=== PATIENT | male | born 1985 | race Caucasian/White ===

== ENCOUNTER 2018-01-23 18:22 | Emergency (ER) | payer SELFPAY ==
[~2018-01-23] VITALS: Ht 185.4 cm; Wt 72.0 kg
[~2018-01-23 18:22] MED LIST: ALPR1 PO; OXYC10TA8 PO
[2018-01-23 18:33] VITALS: BP 145/67; PULSE 94; RESP 16; TEMP 97.6; O2SAT 97
--- NOTE | 2018-01-23 20:03 | PD ---
HPI Chief Complaint: Psychiatric Symptoms Time Seen by Provider: 19:38 Travel History International Travel<30 days: No Contact w/Intl Traveler<30days: No Traveled to known affect area: No History of Present Illness HPI 32-year-old white male presents emergency department on a voluntary basis at the recommendation of [facility] for psychological evaluation. DCF was called on this patient because he has been using illegal substances. The patient does admit to taking oxycodone, Xanax as well as injecting methamphetamine. The patient denies any suicidal homicidal ideation. He denies any toxic ingestions. He states that he has chronic back pain. Symptoms are moderate. No alleviating factors. Worsened by drug abuse. PFSH Past Medical History Narrative Medical Chronic back pain, borderline hypertension, substance abuse Diminished Hearing: No Tetanus Vaccination: < 5 Years Past Surgical History Narrative Surgical Lumbar discectomy, tonsils tonsillectomy and adenoidectomy Tonsillectomy: Yes Social History Alcohol Use: No Tobacco Use: Yes (1/2PPD) Substance Use: Yes Allergies-Medications (Allergen,Severity, Reaction): Coded Allergies: acetaminophen (Unverified Allergy, Intermediate, Nausea/Vomiting, 05/23/17) amoxicillin (Unverified Allergy, Intermediate, Rash, 05/23/17) clavulanic acid (Unverified Allergy, Intermediate, Rash, 05/23/17) morphine (Unverified Allergy, Intermediate, Nausea/Vomiting, 05/23/17) Reported Meds & Prescriptions Reported Meds & Active Scripts Active Reported Oxycodone Hcl (Oxycodone HCl) 10 Mg Tab 30 Mg PO Q6H PRN Xanax 1 Mg Tab (Alprazolam) 1 Mg Tab 1 Mg PO BID PRN Review of Systems General / Constitutional: No: Fever Eyes: No: Visual changes HENT: No: Headaches Cardiovascular: No: Chest Pain or Discomfort Respiratory: No: Shortness of Breath Gastrointestinal: No: Abdominal Pain Genitourinary: No: Dysuria Musculoskeletal: Positive: Pain (Chronic lower back pain), No: Myalgias, Arthralgias, Limited ROM, Weakness, Cramping Skin: No Rash Neurologic: No: Weakness Psychiatric: Positive: Substance Abuse, No: Anxiety, Depression, Suicidal Ideations, Disorder of Thought, Mood Disorder, Homicidal Ideation Endocrine: No: Polydipsia Hematologic/Lymphatic: No: Easy Bruising Physical Exam Narrative GENERAL: Well-nourished, well-developed patient. Patient appears under the influence of substances. Patient's speech is slow but intact. SKIN: Warm and dry. HEAD: Normocephalic and atraumatic. EYES: No scleral icterus. No injection or drainage. ENT: No nasal drainage noted. Mucous membranes pink. Airway patent. NECK: Supple, trachea midline. Moves head freely without obvious discomfort. CARDIOVASCULAR: Regular rate and rhythm without murmurs, gallops, or rubs. RESPIRATORY: Breath sounds equal bilaterally. No accessory muscle use. GASTROINTESTINAL: Abdomen soft, non-tender, nondistended. EXTREMITIES: No cyanosis or edema. BACK: Nontender without obvious deformity. No CVA tenderness. NEURO: Patient is alert and oriented. no sensorimotor deficits. Nonfocal. Slow but intact speech. PSYCH: No delusions. No auditory or visual hallucinations. Data Data Last Documented VS Vital Signs Date Time Temp Pulse Resp B/P (MAP) Pulse Ox O2 Delivery O2 Flow Rate FiO2 01/23/18 18:33 97.6 94 16 145/67 (93) 97 Orders Orders Complete Blood Count With Diff (01/23/18 19:34) Comprehensive Metabolic Panel (01/23/18 19:34) Thyroid Stimulating Hormone (01/23/18 19:34) Psych Screen (01/23/18 19:34) Drug Screen, Random Urine (01/23/18 19:34) Alcohol (Ethanol) (01/23/18 19:34) Salicylates (Aspirin) (01/23/18 19:34) Tylenol (Acetaminophen) (01/23/18 19:34) [facility] Medical Decision Making Medical Screen Exam Complete: Yes Emergency Medical Condition: Yes Medical Record Reviewed: Yes Differential Diagnosis MDM: High Differential diagnoses: Schizophrenia, schizoaffective disorder, bipolar, anxiety, depression, adjustment reaction, mood disorder NOS, ODD, depressive disorder NOS, substance induced mood disorder,infection,electrolyte abnormality , malingering. Narrative Course Mental health screening discussed with the patient. Psychiatric screen ordered. Condition: Stable JuditOrlando MCNAIR Jan 23, 2018 20:03
[2018-01-23 21:52] LABS: AUTOMATED NEUTROPHIL # 3.1 TH/MM3 (1.8-7.7); BASOPHIL # 0.1 TH/MM3 (0-0.2); EOSINOPHIL # 0.2 TH/MM3 (0-0.4); EOSINOPHIL % 2.8 % (0.0-4.0); HEMATOCRIT 43.6 % (39.0-51.0); HEMOGLOBIN 14.4 GM/DL (13.0-17.0); LYMPH % 42.3 % (9.0-44.0); MEAN CELL VOLUME 76.9 FL (80.0-100.0); MEAN CORPUSCULAR HEMOGLOBIN 25.4 PG (27.0-34.0); MEAN CORPUSCULAR HGB CONC 33.1 % (32.0-36.0); MEAN PLATELET VOLUME 8.7 FL (7.0-11.0); MONO % 10.5 % (0.0-8.0); MONOCYTE # 0.7 TH/MM3 (0-0.9); NEUT % 43.4 % (16.0-70.0); PLATELET COUNT 280 TH/MM3 (150-450); RED BLOOD COUNT 5.67 MIL/MM3 (4.50-5.90); RED CELL DISTRIBUTION WIDTH 17.2 % (11.6-17.2)
[2018-01-23 22:27] LABS: ALBUMIN 4.1 GM/DL (3.4-5.0); ALT (GPT) 23 U/L (12-78); AST (GOT) 20 U/L (15-37); BICARBONATE 33.9 MEQ/L (21.0-32.0); BLOOD UREA NITROGEN 9 MG/DL (7-18); CALCIUM 8.8 MG/DL (8.5-10.1); CHLORIDE 104 MEQ/L (98-107); CREATININE 0.97 MG/DL (0.60-1.30); GLOMERULAR FILTRATION RATE 89 ML/MIN (>89); GLUCOSE,RANDOM 63 MG/DL (74-106); SODIUM (NA) 143 MEQ/L (136-145)
[2018-01-23 22:37] LABS: ALKALINE PHOSPHATASE 82 U/L (45-117); TOTAL BILIRUBIN ADULT 0.6 MG/DL (0.2-1.0); TOTAL PROTEIN 7.7 GM/DL (6.4-8.2)
[2018-01-23 22:41] LABS: ACETAMINOPHEN LESS THAN 2.0 MCG/ML (10.0-30.0)
[2018-01-23 22:44] VITALS: BP 133/82; PULSE 93; RESP 20; TEMP 98.9; O2SAT 100
[2018-01-24 06:18] VITALS: BP 142/79; PULSE 87; RESP 14; TEMP 97.8; O2SAT 99
--- NOTE | 2018-01-24 08:35 | PD ---
Physical Exam Time Seen by Provider: 08:30 Narrative This patient came in on a voluntary basis for psych screen per [facility]. Dr. Alva states this patient came in for psych evaluation for DCF. He says they do not do psych screens for DCF and the patient has no psychiatric symptoms , so he will not be evaluated by the psychiatrist at this time. I evaluated the patient and he says he was sent here by [facility] because some random phone calls were made to [facility] stating the patient was using illegal drugs and making statements that he wanted to hurt himself or others. The patient states that this is not true. He denies being suicidal or homicidal. He admits to injecting drugs 2 times. He denies having psychiatric history. I do not feel the patient is a threat to himself or others and the patient will be discharged home. Data Data Last Documented VS Vital Signs Date Time Temp Pulse Resp B/P (MAP) Pulse Ox O2 Delivery O2 Flow Rate FiO2 01/24/18 06:18 97.8 87 14 142/79 (100) 99 01/23/18 22:44 Room Air Orders Orders Complete Blood Count With Diff (01/23/18 19:34) Comprehensive Metabolic Panel (01/23/18 19:34) Thyroid Stimulating Hormone (01/23/18 19:34) Psych Screen (01/23/18 19:34) Drug Screen, Random Urine (01/23/18 19:34) Alcohol (Ethanol) (01/23/18 19:34) Salicylates (Aspirin) (01/23/18 19:34) Tylenol (Acetaminophen) (01/23/18 19:34) Diet Regular Basic (01/24/18 Breakfast) Labs Laboratory Tests Test 01/23/18 21:32 01/23/18 21:37 Urine Opiates Screen NEG Urine Barbiturates Screen NEG Urine Amphetamines Screen POS Urine Benzodiazepines Screen POS Urine Cocaine Screen NEG Urine Cannabinoids Screen NEG White Blood Count 7.0 TH/MM3 Red Blood Count 5.67 MIL/MM3 Hemoglobin 14.4 GM/DL Hematocrit 43.6 % Mean Corpuscular Volume 76.9 FL Mean Corpuscular Hemoglobin 25.4 PG Mean Corpuscular Hemoglobin Concent 33.1 % Red Cell Distribution Width 17.2 % Platelet Count 280 TH/MM3 Mean Platelet Volume 8.7 FL Neutrophils (%) (Auto) 43.4 % Lymphocytes (%) (Auto) 42.3 % Monocytes (%) (Auto) 10.5 % Eosinophils (%) (Auto) 2.8 % Basophils (%) (Auto) 1.0 % Neutrophils # (Auto) 3.1 TH/MM3 Lymphocytes # (Auto) 3.0 TH/MM3 Monocytes # (Auto) 0.7 TH/MM3 Eosinophils # (Auto) 0.2 TH/MM3 Basophils # (Auto) 0.1 TH/MM3 CBC Comment DIFF FINAL Differential Comment Blood Urea Nitrogen 9 MG/DL Creatinine 0.97 MG/DL Random Glucose 63 MG/DL Total Protein 7.7 GM/DL Albumin 4.1 GM/DL Calcium Level 8.8 MG/DL Alkaline Phosphatase 82 U/L Aspartate Amino Transf (AST/SGOT) 20 U/L Alanine Aminotransferase (ALT/SGPT) 23 U/L Total Bilirubin 0.6 MG/DL Sodium Level 143 MEQ/L Potassium Level 3.8 MEQ/L Chloride Level 104 MEQ/L Carbon Dioxide Level 33.9 MEQ/L Anion Gap 5 MEQ/L Estimat Glomerular Filtration Rate 89 ML/MIN Thyroid Stimulating Hormone 3rd Gen 2.490 uIU/ML Salicylates Level LESS THAN 1.7 MG/DL Acetaminophen Level LESS THAN 2.0 MCG/ML Ethyl Alcohol Level LESS THAN 3 MG/DL MDM Supervised Visit with JEREMY: No Narrative Course This patient came in on a voluntary basis for psych screen per [facility]. Dr. Alva states this patient came in for psych evaluation for DCF. He says they do not do psych screens for DCF and the patient has no psychiatric symptoms , so he will not be evaluated by the psychiatrist at this time. I evaluated the patient and he says he was sent here by [facility] because some random phone calls were made to [facility] stating the patient was using illegal drugs and making statements that he wanted to hurt himself or others. The patient states that this is not true. He denies being suicidal or homicidal. He admits to injecting drugs 2 times. He denies having psychiatric history. I do not feel the patient is a threat to himself or others and the patient will be discharged home. Patient contracts safety. Denies suicidal or homicidal ideations. Patient will be provided community resource packet to [facility] for follow-up. Has friends and family for support. Patient was medically cleared by alternate provider. Diagnosis Primary Impression: Amphetamine abuse Additional Impression: Benzodiazepine abuse Referrals: [facility] (Out patient) [facility] Primary Care Physician Psychiatrist [facility] Patient Instructions: General Instructions, Polysubstance Abuse (ED) Additional Instruction: Contract safety to your self and others Stop using drugs Follow-up with psychiatry Follow-up with primary care provider Follow-up with Mandeep Tyler/GR[facility] Return to the emergency department immediately with worsening of symptoms Med/Other Pt SpecificInfo: No Change to Meds, No Meds Exist/No RX given Disposition: 01 DISCHARGE HOME Condition: Stable Kathleen Lomeli Jan 24, 2018 08:35
== END 2018-01-24 11:31 | disposition home or self-care (01) ==
LOC: NEPJ 18:22
DX: F15.10 Other stimulant abuse, uncomplicated (principal); F13.10 Sedative, hypnotic or anxiolytic abuse, uncomplicated; F17.200 Nicotine dependence, unspecified, uncomplicated; G89.29 Other chronic pain; M54.9 Dorsalgia, unspecified
CPT/HCPCS: 80053; 80307; 84443; 85025; 99283